=== PATIENT | male | born 1935 | race Caucasian/White ===

== ENCOUNTER 2016-09-14 14:40 | Emergency (ER) | payer MEDICARE, OTHER ==
[~2016-09-14 14:40] MED LIST: BUSPIRONE HCL15 MG PO; COL-RITE100 MG PO; HYDROCHLOROTH12.5 MG PO; LORATADINE10 MG PO; MECLIZINE HCL25 MG PO; MIRTAZAPINE15 MG PO; NEXIUM40 MG PO; ONE DAILY1 EACH PO; SEROQUEL100 MG PO; TESSALON PERLE100 MG PO
[2016-09-14 15:28] LABS: HEMOGLOBIN 12.5 gm/dl (14.0-17.5); RED BLOOD COUNT 4.19 M/UL (4.20-5.50); WHITE BLOOD COUNT 4.1 K/UL (4.5-11.0)
[2016-11-26] MEDS ORDERED: CIPRO500 MG PO (10:27)
[2016-11-26] MEDS ORDERED: FLOMAX 0.4 MG0.4 MG PO (10:27)
[2016-11-27] MEDS ORDERED: LEVAQUIN750 MG PO (17:31)
[2016-11-27] MEDS ORDERED: VENTOLIN/PROVE0.5 ML INH (17:32)
[2016-11-27] MEDS ORDERED: MUCINEX DM PO (17:33)
[2016-11-27] MEDS ORDERED: ADULT LOW DOSE81 MG PO (17:37)
[2016-11-27] MEDS ORDERED: TYLENOL 325MG325 MG PO (17:38)
== END 2016-09-14 22:52 | disposition home or self-care (01) ==
LOC: ER1 14:40
PROVIDERS: Family Medicine
DX: R06.02 Shortness of breath (principal)
CPT/HCPCS: 36415; 51701; 71020; 80053; 81001; 82550; 82553; 83874; 83880; 84484; 85025; 85379; 93005; 99285